=== PATIENT | female | born 2005 ===

== ENCOUNTER → 2024-05-22 23:59 | Outpatient (BNV) | payer MEDICAID, SELFPAY ==
--- NOTE | 2024-05-23 10:05 | A.OFFVIS_ITS ---
Intake Visit Reasons: follow up HPI Comments Details: new student. she is 8 months and wants to discuss maternity leave. she would prefer to be able to come to school when she feels able but last week she didn't make it once. discussed this at end of visit w/ michael ashton her counselor and it was agreed that she will stay on roster unless she is calling in more than making it here. she moved to this area in march from [facility] where her docs were at [facility] - she'd been going to them since she was a baby. so she doesn't want to change pcp. she is going to [facility] and will deliver at [facility]. she has hyperthyroid - preg related - was vomiting a lot when early in now she feels fine she is on medications for this (unknown meds) and vitamins. PMH: hyperthyroid and broken hip from falling off swing when she was a child - she fell off backwards and was in a cast - the bones grew over the screws so they were not able to get the screws out and sometimes she gets pain. particularly during . no one expects problems with vaginal . 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 she hopes to get her [employer] and go back to [employer] to enroll in a program that will help her get a skill [facility] 06/17/2021 FMH: non contributory living in jail secondary to relationship w/ mother [facility] Medical History (Updated 05/23/24 @ 10:30 by MATTHEW Wu) Living in jail History of hip fracture Review of Systems Const Details: Counseling visit: All systems reviewed & are unremarkable except as noted in HPI and below Reports as per HPI Resp Reports as per HPI GI Reports as per HPI Musc Reports as per HPI Neuro Reports as per HPI Psych Reports as per HPI Physical Exam Const Other: quite - moves well getting up and out of chair despite history of hip frx as child General: cooperative, healthy appearing and no acute distress Nutritional Appearance: well nourished Orientation/consciousness: oriented to person Limitations: no limitations HEENT Other: wnl Eyes Other: wnl Chest Other: easy breathing Resp Effort & Inspection: able to speak in complete sentences Skin Other: normal in appearance Neuro General: oriented to person Psych Other: see HPI - appears psychologically comfortable Mental Status: mental status grossly normal Speech and movement: Clear speech present Affect: normal affect Attitude: cooperative Thought process: Normal thought process present Quality Reporting (2019) Depression/Bipolar (159/160/161/177) PHQ-9: Total score: 8 Assessment & Plan Assessment & Plan (1) Hyperthyroidism complicating in third trimester: Code(s): O99.283 - Endocrine, nutritional and metabolic diseases complicating , third trimester; E05.90 - Thyrotoxicosis, unspecified without thyrotoxic crisis or storm Category: Medical (2) Living in jail: Code(s): Z59.01 - Sheltered homelessness Category: Medical (3) Counseling and coordination of care: Code(s): Z71.89 - Other specified counseling Category: Medical Plan teaching and counseling - discussed w her and w/ her counselor - here - regarding maternity leave - she would like to stay so that she can come when she feels up to it. she is close to her due date - so we will play this by ear, if she is missing too many days and is putting her slot at risk - michael ashton will let me know and we can put her on leave so that she can return after baby born. Coding Level of Care Code New Pt Level 4 (99703) Diagnoses Hyperthyroidism complicating in third trimester O99.283; E05.90 Living in jail Z59.01 Counseling and coordination of care Z71.89 Additional Codes [facility] Assessment Charge - Oswaldot: FOUZIA [id number] ([id number]) Time Spent (min) 60 Comment extensive counseling done, and coord of services PHQ-9 Over the last 2 weeks, how often have you been bothered by any of the following problems? 1. Little interest or pleasure in doing things: several days 2. Feeling down, depressed, or hopeless: not at all 3. Trouble falling or staying asleep, or sleeping too much: more than half the days 4. Feeling tired or having little energy: more than half the days 5. Poor appetite or overeating: more than half the days 6. Feeling bad about yourself - or that you are a failure or have let yourself or your family down: not at all 7. Trouble concentrating on things, such as reading the newspaper or watching television: not at all 8. Moving or speaking so slowly that other people could have noticed. Or the opposite - being so fidgety or restless that you have been moving around a lot more than usual: several days 9. Thoughts that you would be better off or of hurting yourself in some way: not at all Total score: 8 Depression Screening Interpretation: Negative (all the 'positives' were related to the physical burden of last trimester of ) Depression Screening Done: Yes 29851 - PHQ-9 Billing: Yes Source: Developed by Drs. Arian Browning, Laura Foreman, Finesse Torres and colleagues, with an educational xenia from [employer]. CRAFFT Screening Tool PART A: In the PAST 12 MONTHS, did you: Drink any alcohol (more than few sips)? (Do not count sips of alcohol taken during family or mandaen events.): No Smoke any marijuana or hashish?: No Use anything else to get high? (includes illegal drugs, over the counter/prescription drugs, or things that you sniff/taveras?): No CRAFFT Assessment Charge Oswaldot: FOUZIA [id number]
== END ==
PROVIDERS: PCP Nurse Practitioner Family; Visit Provider Nurse Practitioner Family
DX: O99.283 Endocrine, nutritional and metabolic diseases complicating pregnancy, third trimester (principal); E05.90 Thyrotoxicosis, unspecified without thyrotoxic crisis or storm; Z59.01 Sheltered homelessness; Z71.89 Other specified counseling
CPT/HCPCS: 96160; 99204